=== PATIENT | male | born 1955 | race Caucasian/White ===

== ENCOUNTER 2020-08-13 15:29 | Emergency (ER) | payer MEDICARE ==
[~2020-08-13] VITALS: Ht 177.8 cm; Wt 71.7 kg
[2020-08-13] MEDS ORDERED: KETOROLAC 30 MG/1 ML IVPush ONE (16:00)
[2020-08-13] MEDS ORDERED: ONDANSETRON 2MG/ML, 2ML IVPush ONE (16:00)
[2020-08-13] MEDS ORDERED: SODIUM CHLORIDE 0.9% 1,000ML IV ONE (16:00)
[2020-08-13] MEDS ORDERED: KETOROLAC 30 MG/1 ML ONE (16:07)
[2020-08-13] MEDS ORDERED: ONDANSETRON 2MG/ML, 2ML ONE (16:07)
[2020-08-13 16:20] LABS: BASOPHILS % (AUTO) 0 % (0-1); EOSINOPHILS % (AUTO) 0 % (1-7); LYMPHOCYTES % (AUTO) 3 % (22-44); MEAN CORPUSCULAR HEMOGLOBIN 30.9 pg (27.5-34.5); MEAN PLATELET VOLUME 8.9 fL (7.4-10.4); MONOCYTES % (AUTO) 5 % (2-9); NEUTROPHILS % (AUTO) 92 % (42-75); PLATELET COUNT 271 x10^3/uL (130-400); RED BLOOD COUNT 4.98 x10^6/uL (4.38-5.82)
[2020-08-13] MEDS ORDERED: MORPHINE SULFATE 4 MG/ML, 1ML ONE ×2 (16:27→17:42)
[2020-08-13] MEDS: MORPHINE SULFATE 4 MG/ML, 1ML IVPush PRN ×2 (16:30→17:49)
[2020-08-13 16:33] LABS: ALBUMIN 4.2 g/dL (3.4-5.0); ANION GAP 10 mmol/L (5-15); CALCIUM 9.5 mg/dL (8.5-10.1); CHLORIDE 106 mmol/L (98-107)
[2020-08-13 16:34] LABS: CREATININE 1.45 mg/dL (0.7-1.3)
[2020-08-13 17:13] LABS: MD SCAN
--- NOTE | 2020-08-13 17:28 | NUR ---
PT BACK FROM RAD
[2020-08-13 17:57] VITALS: BP 150/80
== END 2020-08-13 17:59 | disposition home or self-care (01) ==
LOC: ED 17:53
DX: M54.5 Low back pain (principal); G89.29 Other chronic pain; M54.6 Pain in thoracic spine; F17.210 Nicotine dependence, cigarettes, uncomplicated; R11.2 Nausea with vomiting, unspecified
CPT/HCPCS: 36415; 80048; 82040; 85025; 96361; 96374; 96375; 96376; 99284; J1885; J2270; J2405; J7030